=== PATIENT | female | born 1965 | race Caucasian/White ===

== ENCOUNTER 2018-05-01 05:31 | Day surgery (SDC) | payer BC, OTHER ==
[2018-04-25 17:27] VITALS: BMI 36.9
[2018-05-01] MEDS ORDERED: PROPOFOL 20 ML ONE (12:18)
[2018-05-01] MEDS ORDERED: MIDAZOLAM HCL 2 MG/2 ML SINGLE DOSE VIAL ONE (12:18)
[2018-05-01] MEDS ORDERED: oxyCODONE HCL 5 MG TABLET PO PRN (13:18)
[2018-05-01] MEDS ORDERED: ACETAMINOPHEN 1000 MG/100 ML VIAL (NON FORMULARY) IVPB PRN (13:18)
[2018-05-01] MEDS ORDERED: ONDANSETRON 4 MG/2 ML VIAL IVPUSH PRN (13:18)
[2018-05-01] MEDS ORDERED: LACTATED RINGERS SOLUTION 1,000 ML IV SCH (13:30)
--- NOTE | 2018-05-01 13:30 | HP ---
History & Physical Update - History History: No Change - Physical Physical: No Change - Assessment Assessment: No Change - Plan Plan: No Change
--- NOTE | 2018-05-01 13:35 | OP ---
Operative Note - Note: Operative Date: 05/01/18 Pre-Operative Diagnosis: Endometrial hyperplasia Operation: Hysteroscopic myomectomy. Suction DC Findings: submucosal myoma endometrial polyp Post-Operative Diagnosis: Same as Pre-op Surgeon: Benita Santos Anesthesia: General Estimated Blood Loss (mls): 30 Operative Report Dictated: Yes
[2018-05-01 16:37] VITALS: BP 125/66; PULSE 63; TEMP 97.8
--- NOTE | 2018-05-01 20:57 | OP ---
DATE OF OPERATION: 05/01/2018 PREOPERATIVE DIAGNOSES: Endometrial hyperplasia, postmenopausal bleeding. OPERATION: Hysteroscopic myomectomy, suction dilatation and curettage. POSTOPERATIVE DIAGNOSES: Endometrial hyperplasia, postmenopausal bleeding. SURGEON: Benita Santos MD ANESTHESIA: General. ANESTHESIOLOGIST: Ly Brownlee MD PROCEDURE: Patient was taken to the operating room, placed in dorsal lithotomy position, prepped and draped in the usual sterile fashion. A timeout was performed in accordance to hospital regulation. Speculum was placed in the vagina. The anterior lip of the cervix grasped with single-tooth tenaculum. Cervix was then dilated to accommodate the operative hysteroscope. Visualization revealed an endometrial polyp and a submucosal myoma. Cautery and cutting of the myoma was done and the polyp. pathology was then performed, followed by suction D&C. Endometrial cavity appeared to be clear and normal. No signs of cancer seen. All instruments then removed. Patient had tolerated the procedure well. Estimated blood loss: 30 mL. BENITA SANTOS M.D. LUIS ALBERTO/[id number]
--- NOTE | 2018-05-03 11:02 | PATH ---
Surgical Pathology Report Patient Name: CHINTAN YOUNG [facility]. Rec. #: [id number] /Age/Gender: 1965 (Age: 53) / F Account: [id number] Location: [facility] SURGICAL Taken: 05/01/2018 Received: 05/02/2018 Reported: 05/03/2018 Physicians: Benita Santos M.D. Specimen(s) Received A: ENDOMETRIAL CURETTINGS B: ENDOMETRIAL POLYP C: MYOMA Clinical History Postoperative diagnosis: Endometrial polyp Final Diagnosis A. EMC, DILATION AND CURETTAGE: SCATTERED ENDOMETRIAL GLANDS, MINIMAL STROMA, AND PREDOMINANTLY CERVICAL SQUAMOUS MUCOSA IN A BACKGROUND OF ABUNDANT MUCUS. B. ENDOMETRIAL POLYP, BIOPSY: RARE ENDOMETRIAL GLANDS AND RARE ENDOCERVICAL GLANDS IN A BACKGROUND OF ABUNDANT MUCUS. C. UTERINE FIBROID, HYSTEROSCOPIC MYOMECTOMY: FRAGMENTS OF SMOOTH MUSCLE COMPATIBLE WITH LEIOMYOMA AND SCANT ENDOMETRIAL GLANDS. Electronically Signed Abbey Dean M.D. Gross Description A. Received in formalin labeled "EMC," is a 1.7 x 1.3 x 0.2 cm aggregate of mccoy-brown soft tissue fragments admixed with mucus. The formalin is filtered and the specimen is entirely submitted in one cassette. B. Received in formalin labeled "endometrial polyp," is a 2.0 x 1.4 x 0.3 cm aggregate of blood-tinged mucus, possibly containing soft tissue fragments. No definite soft tissue is identified. The formalin is filtered and the specimen is entirely submitted in one cassette. C. Received in formalin labeled "uterine fibroid," is a less than 1 g aggregate of 2 mccoy soft tissue fragments measuring 0.3 and 0.5 cm in greatest dimension. The specimen is submitted in total in one cassette. DL/05/02/201805/02/2018
== END 2018-05-01 16:05 | disposition home or self-care (01) ==
LOC: JASU-SURG 05:31
PROVIDERS: ATTEND Obstetrics & Gynecology
PROC: 0UDB7ZX Extraction of Endometrium, Via Natural or Artificial Opening, Diagnostic (ICD-10-PCS; 2018-05-01)
PROC: 0UJD8ZZ Inspection of Uterus and Cervix, Via Natural or Artificial Opening Endoscopic (ICD-10-PCS; 2018-05-01)
PROC: 0UB98ZZ Excision of Uterus, Via Natural or Artificial Opening Endoscopic (ICD-10-PCS; principal; 2018-05-01 11:00)
PROC: 0UB97ZX Excision of Uterus, Via Natural or Artificial Opening, Diagnostic (ICD-10-PCS; 2018-05-01 11:00)
DX: N95.0 Postmenopausal bleeding (principal); N85.00 Endometrial hyperplasia, unspecified; D25.0 Submucous leiomyoma of uterus; N84.0 Polyp of corpus uteri
CPT/HCPCS: 84703; 86850; 86900; 86901; 88305-TC; 94760; J0131

== ENCOUNTER 2020-03-10 05:20 | Day surgery (SDC) | payer BC, OTHER ==
--- OUTSIDE RECORDS SUMMARY | 2020-03-04 07:45 | XMS ---
:1965 Author Organization [facility] Support Name Relationship Address Phone GABY YOUNG BROTHER [address] [facility] [address] [place] [address] Re-disclosure Warning The records that you are about to access may contain information from federally- assisted alcohol or drug abuse programs. If such information is present, then the following federally mandated warning applies: This information has been disclosed to you from records protected by federal confidentiality rules (42 CFR part 2). The federal rules prohibit you from making any further disclosure of this information unless further disclosure is expressly permitted by the written consent of the person to whom it pertains or as otherwise permitted by 42 CFR part 2. A general authorization for the release of medical or other information is NOT sufficient for this purpose. The Federal rules restrict any use of the information to criminally investigate or prosecute any alcohol or drug abuse patient.The records that you are about to access may contain highly sensitive health information, the redisclosure of which is protected by Article 27-F of the [facility] Public Health law. If you continue you may haveaccess to information: Regarding HIV / AIDS; Provided by facilities licensed or operated by the [facility] Office of Mental Health; or Provided by the [facility] Office for People With Developmental Disabilities. If such information is present, then the following [facility] mandated warning applies: This information has been disclosed to you from confidential records which are protected by state law. State law prohibits you from making any further disclosure of this information without the specific written consent of the person to whom it pertains, or as otherwise permitted by law. Any unauthorized further disclosure in violation of state law may result in a fine or detention sentence or both. A general authorization for the release of medical or other information is NOT sufficient authorization for further disclosure. Results ID Date Data Source [id number] 02/09/2020 08:55:00 AM EDT [facility] Name Value Range Interpretation Code Description Data Theresa rce(s) Supporting Document(s ) SARS-COV-2 [facility] QL DUKE+PROBE This lab was ordered by [employer] and reported by [employer]. ID Date Data Source [id number] 01/08/2020 08:53:00 AM EDT [facility] Name Value Range Interpretation Code Description Data Theresa rce(s) Supporting Document(s ) SARS-COV-2 [facility] QL DUKE+PROBE This lab was ordered by [employer] and reported by [employer]. ID Date Data Source [id number] 10/15/2019 11:30:00 AM EDT [facility] Name Value Range Interpretation Code Description Data Theresa rce(s) Supporting Document(s ) COV2 [facility] This lab was ordered by [employer] and reported by [employer]. Procedure
[2020-03-06 16:16] VITALS: BMI 36.6
--- OUTSIDE RECORDS SUMMARY | 2020-03-10 05:23 | XMS ---
:1965 Author [facility] Support Name Relationship Address Phone [facility], [facility] Unavailable [address] [place] [address] [facility] Unavailable [address] [place] [address] GABY YOUNG BROTHER [address] [place] [address] Re-disclosure Warning The records that you are [...] is protected by Article 27-F of the [facility] Public Health law. If you continue you may haveaccess to information: Regarding HIV / AIDS; Provided by facilities licensed or operated by the [facility] Office of Mental Health; or Provided by the [facility] Office for People With Developmental Disabilities. If such information is present, then the following [facility] mandated warning applies: This information has been [...] law may result in a fine or alf sentence or both. A general authorization for the release of medical or other information is NOT sufficient authorization for further disclosure. Insurance Providers Payer name Policy type / Policy ID Covered Covered republican's Policy Plan Coverage type republican ID relationship to Gr Information gr [facility] [id number] SP [id number] 01 OUTPT 1 BC PPO [id number] SP [id number] Results ID Date Data Source [id number] 03/05/2020 08:31:00 AM EDT [facility] Name Value Range Interpretation Description Data Sup porting Code Source(s) Document(s ) SARS [facility] coronavirus 2 RNA This lab was ordered by [facility] and reported by [employer]. ID Date Data Source [id number] 02/09/2020 08:55:00 AM EDT [facility] Name Value Range Interpretation Code Description Data Theresa rce(s) Supporting Document(s ) SARS-COV-2 [facility] QL DUKE+PROBE This lab was ordered by [employer] and reported by [employer]. ID Date Data Source [id number] 01/08/2020 08:53:00 AM EDT [facility] Name Value Range Interpretation Code Description Data Theresa rce(s) Supporting Document(s ) SARS-COV-2 [facility] QL DUKE+PROBE This lab was ordered by [employer] and reported by [employer]. ID Date Data Source [id number] 10/15/2019 11:30:00 AM EDT [facility] Name Value Range Interpretation Code Description Data Theresa rce(s) Supporting Document(s ) COV2 [facility] This lab was ordered by [employer] and reported by [employer]. Procedure
[2020-03-10 10:27] VITALS: TEMP 97.5
[2020-03-10 11:23] VITALS: BP 113/65; PULSE 61
--- NOTE | 2020-03-11 15:42 | PATH ---
Surgical Pathology Report Patient Name: CHINTAN YOUNG [facility]. Rec. #: [id number] /Age/Gender: 1965 (Age: 55) / F Account: [id number] Location: [facility] Taken: 03/10/2020 Received: 03/10/2020 Reported: 03/11/2020 Physicians: Jillian Schmidt M.D. Specimen(s) Received POLYP SIGMOID Clinical History History of diverticulitis, rule out colon cancer Postoperative diagnosis: sigmoid polyp, diverticulosis Final Diagnosis SIGMOID COLON, POLYP, BIOPSY: POLYPOID COLONIC MUCOSA WITHOUT SIGNIFICANT PATHOLOGIC FINDINGS. Electronically Signed Abbey Dean M.D. Gross Description Received in formalin, labeled "sigmoid polyp" is a mccoy, irregular portion of soft tissue measuring 0.5 cm. in greatest dimension. The specimen is submitted in toto in one cassette. /03/10/2020 saudi/03/10/2020
== END 2020-03-10 11:23 | disposition home or self-care (01) ==
LOC: JASU-ENDO 05:20
PROVIDERS: ATTEND Internal Medicine Gastroenterology
PROC: 0DBN8ZX Excision of Sigmoid Colon, Via Natural or Artificial Opening Endoscopic, Diagnostic (ICD-10-PCS; principal; 2020-03-10 10:00)
DX: Z12.11 Encounter for screening for malignant neoplasm of colon (principal); D12.5 Benign neoplasm of sigmoid colon; K57.30 Diverticulosis of large intestine without perforation or abscess without bleeding; I10 Essential (primary) hypertension; E78.5 Hyperlipidemia, unspecified; Z83.71 Family history of colonic polyps
CPT/HCPCS: 88305-TC

== ENCOUNTER 2023-10-19 14:49 | Emergency (ER) | payer BC, OTHER ==
[2023-10-19 15:09] VITALS: BP 135/60; RESP 18; TEMP 98; BMI 36.6
[2023-10-19 17:13] VITALS: PULSE 85
[2023-10-19] MEDS ORDERED: SIMETHICONE 80 MG TAB.CHEW (FP) ONE (17:27)
[2023-10-19] MEDS: SIMETHICONE 80 MG TAB.CHEW (FP) PO ONE (17:29)
== END 2023-10-19 17:36 | disposition home or self-care (01) ==
LOC: JER 14:49
DX: R14.0 Abdominal distension (gaseous) (principal); R19.4 Change in bowel habit
CPT/HCPCS: 99283-25